=== PATIENT | female | born 1945 | race African-American/Black ===

== ENCOUNTER → 2016-07-06 | Outpatient (CLI) | payer MEDICARE ==
--- NOTE | 2016-07-10 10:57 | MM ---
Reason for exam: screening (asymptomatic). Last mammogram was performed 2 years and 1 month ago. History: Patient is postmenopausal. Family history of premenopausal breast cancer in grandmother at age 24. Cyst aspiration of the left breast, 2008. Took hormonal contraceptives for 14 years beginning at age 22. Took estrogen for 14 years beginning at age 37. Physical Findings: A clinical breast exam by your physician is recommended on an annual basis and results should be correlated with mammographic findings. MG 3D Screening Mammo W/Cad Bilateral CC and MLO view(s) were taken. Prior study comparison: June 16, 2014, bilateral MG screening mammo w CAD. June 15, 2013, bilateral digital screening mammo w/CAD. May 30, 2012, bilateral digital screening mammo w/CAD. The breast tissue is heterogeneously dense. This may lower the sensitivity of mammography. Finding: There is a 9 mm round mass in the lower outer quadrant, posterior position in the left breast. Asymmetric breast tissue in the right breast, stable. New finding since June 16, 2014, June 15, 2013, and May 30, 2012. ASSESSMENT: Incomplete: need additional imaging evaluation, BI-RAD 0 RECOMMENDATION: Ultrasound of the left breast. [facility] will attempt to contact patient to return for ultrasound.
== END ==
LOC: RADMAMWWP 07-05 09:39
PROVIDERS: ATTEND Internal Medicine
DX: Z12.31 Encounter for screening mammogram for malignant neoplasm of breast (principal)
CPT/HCPCS: 77063; G0202

== ENCOUNTER → 2016-07-12 | Outpatient (CLI) | payer MEDICARE ==
--- NOTE | 2016-07-13 09:15 | USB ---
Reason for exam: additional evaluation requested from abnormal screening. History: Patient is postmenopausal. Family history of premenopausal breast cancer in grandmother at age 24. Cyst aspiration of the left breast, 2008. Took hormonal contraceptives for 14 years beginning at age 22. Took estrogen for 14 years beginning at age 37. Physical Findings: Nurse did not find any significant physical abnormalities on exam. US Breast Workup Limited LT Left breast ultrasound demonstrates a 0.8 x 0.7 x 0.5cm oval, cystic lesion at 4 o'clock, this probably corresponds to the mammographic abnormality and a 0.4 x 0.4 x 0.3cm oval, cystic lesion at 6 o'clock. These results were verbally communicated with the patient and result sheet given to the patient on 07/12/16. ASSESSMENT: Probably benign, BI-RAD 3 RECOMMENDATION: Follow-up diagnostic mammogram of the left breast in 6 months. ISHMAEL
== END | disposition home or self-care (01) ==
LOC: RADUSWWP 14:19
PROVIDERS: ATTEND Internal Medicine
DX: R92.8 Other abnormal and inconclusive findings on diagnostic imaging of breast (principal)

== ENCOUNTER → 2017-12-20 | Outpatient (CLI) | payer MEDICARE ==
--- NOTE | 2017-12-23 08:41 | MM ---
Reason for exam: additional evaluation requested from prior study. Last mammogram was performed 1 year and 5 months ago. History: Patient is postmenopausal. Family history of premenopausal breast cancer in grandmother at age 24. Cyst aspiration of the left breast, 2008. Took hormonal contraceptives for 14 years beginning at age 22. Took estrogen for 14 years beginning at age 37. Physical Findings: Nurse Summary: 1.5cm nodule in the left breast at 12 o'clock and 6 o'clock (nurse mj). MG 3D Diag Mammo W/Cad JUDAH Bilateral CC and MLO view(s) were taken. CC with magnification, ML with magnification, and ML view(s) were taken of the right breast. Prior study comparison: July 06, 2016, bilateral MG 3d screening mammo w/cad. June 16, 2014, bilateral MG screening mammo w CAD. The breast tissue is heterogeneously dense. This may lower the sensitivity of mammography. Finding #1: There is a 1.3 cm mass in the outer quadrant, central position of the left breast. Finding #2: There are indeterminate calcifications in the upper outer quadrant of the right breast. These results were verbally communicated with the patient and result sheet given to the patient on 12/20/17. ASSESSMENT: Suspicious, BI-RAD 4 RECOMMENDATION: Stereotactic core biopsy of both breasts. Called with mammographic findings and has scheduled an appointment for the patient for 12/24/17 at 1:[address] Gurrola. PRELIMINARY REPORT CALLED AND FAXED TO DR. GURROLA ON 12/23/17.
--- NOTE | 2017-12-23 08:48 | USB ---
Reason for exam: additional evaluation requested from prior study. History: Patient is postmenopausal. Family history of premenopausal breast cancer in grandmother at age 24. Cyst aspiration of the left breast, 2008. Took hormonal contraceptives for 14 years beginning at age 22. Took estrogen for 14 years beginning at age 37. US Breast LT Left complete breast ultrasound includes all four quadrants, the retroareolar region and axilla. Finding demonstrates a 0.3 x 0.2 x 0.2cm oval, cystic lesion at 1 o'clock, a 0.5 x 0.5 x 0.3cm oval, mixed lesion at 2 o'clock, a 0.4 x 0.5 x 0.3cm oval, cystic lesion at 4 o'clock, a 0.5 x 0.5 x 0.4cm oval, cystic lesion at 6 o'clock and a 1.8 x 2.0 x 0.5cm node at the axilla. These results were verbally communicated with the patient and result sheet given to the patient on 12/20/17. ASSESSMENT: Suspicious, BI-RAD 4 RECOMMENDATION: Surgical consultation of both breasts. Called with mammographic findings and has scheduled an appointment for the patient for 12/24/17 at 1:[address] Gurrola. PRELIMINARY REPORT CALLED AND FAXED TO DR. GURROLA ON 12/23/17.
== END | disposition home or self-care (01) ==
LOC: RADMAMWWP 13:35
PROVIDERS: ATTEND Family Medicine
DX: N63.20 Unspecified lump in the left breast, unspecified quadrant (principal); N60.09 Solitary cyst of unspecified breast
CPT/HCPCS: 77066; 76641; G0279; 77062

== ENCOUNTER → 2018-01-24 | Outpatient (CLI) | payer MEDICARE ==
[2018-01-24 11:44] VITALS: BP 151/79; PULSE 87; RESP 20; TEMP 98; BMI 37.7
--- NOTE | 2018-01-24 12:19 | P.GSHP ---
History of Present Illness H&P Date: 01/24/18 Chief Complaint: Impression abnormal mammogram The patient is a 72 year old female presenting with a abnormal mammogram. The mammogram reveals a 1.3 cm mass in the upper outer quadrants/ central position of the left breast. Additionally there were indeterminate calcifications in the upper outer quadrant of the right breast. The patient was noted by the nurse to have a 1.5 cm nodule in the left breast at 12:00 and at 6:00. The patient herself states that she has noticed some nodularity in her left breast and under her left arm for approximately 6 months. The patient also had an ultrasound performed which revealed cystic changes in the left breast, as well as a 1.8 centimeter node in the axilla on the left. The patient has no history of any trauma or infection in her breast. Family History: no cancer Hormonal History: menarche: 12 : 2, children 1, breast fed: no, child born at age:24 menopause: partial hysterectomy at 37, 1 ovary and uterus removed fibroid tumors BCP: 10 years Hormones: none Past surgical history: 1. Partial hysterectomy and 1 ovary removed 2.tonsil 3. Left ankle 4. Right knee Past Medical History: none Social History: smoke: 1/2/PPD since alcohol: none drugs: none - Constitutional Constitutional: Denies chills, Denies fever - EENT Comment: cataracts Eyes: denies blurred vision (double vision at night) Ears: deny: decreased hearing, tinnitus Ears, nose, mouth and throat: Denies headache, Denies sore throat - Breasts Breasts: bilateral: as per HPI - Cardiovascular Cardiovascular: Denies chest pain, Denies shortness of breath - Respiratory Respiratory: Denies cough, Denies 7 - Gastrointestinal Gastrointestinal: Denies abdominal pain, Denies diarrhea, Denies nausea, Denies vomiting - Genitourinary (Female) Genitourinary: Denies dysuria, Denies hematuria - Menstruation Menstruation: Reports post hysterectomy - Musculoskeletal Musculoskeletal: Reports muscle cramps - Integumentary Integumentary: Denies pruritus, Denies rash - Neurological Neurological: Denies numbness, Denies weakness - Psychiatric Psychiatric: Denies anxiety, Denies depression - Endocrine Endocrine: Reports weight change, Denies fatigue - Hematologic/Lymphatic Comment: none - Allergic/Immunologic Allergic/Immunologic: Reports seasonal allergies Past Medical History Past Medical History: GERD/Reflux Additional Past Medical History / Comment(s): Hx anemia History of Any Multi-Drug Resistant Organisms: None Reported Past Surgical History: Hysterectomy, Orthopedic Surgery, Tubal Ligation Additional Past Surgical History / Comment(s): Rt knee arthroscopy, Rt pinky surgery, Rt ankle cyst removed Past Anesthesia/Blood Transfusion Reactions: No Reported Reaction Past Psychological History: No Psychological Hx Reported Smoking Status: Light tobacco smoker Past Alcohol Use History: Occasional Past Drug Use History: None Reported - Past Family History Father Family Medical History: Congestive Heart Failure (CHF) Mother Family Medical History: Dementia Medications and Allergies Home Medications Medication Instructions Recorded Confirmed Type Ranitidine HCl [Zantac] 150 mg PO BID PRN 06/02/14 01/24/18 History Omeprazole [PriLOSEC] 20 mg PO AC-BID 5 Days cap 06/12/14 01/24/18 Rx Allergies Allergy/AdvReac Type Severity Reaction Status Date / Time Sulfa (Sulfonamide Allergy Rash/Hives Verified 06/12/14 18:22 Antibiotics) Surgical - Exam Vital Signs Temp Pulse Resp BP Pulse Ox 98.0 F 87 20 151/79 99 01/24/18 11:36 01/24/18 11:36 01/24/18 11:36 01/24/18 11:36 01/24/18 11:36 BMI 37.7 - General obese - Eyes normal ocular movement - ENT no hearing loss, no congestion - Neck no masses, trachea midline - Respiratory normal expansion - Cardiovascular Rhythm: regular Heart Sounds: normal: S1, S2 - Abdomen Abdomen: soft - Neurologic no disoriented, no combative - Musculoskeletal normal gait, normal posture - Psychiatric oriented to time, oriented to person, oriented to place, speech is normal, memory intact Breast examination: Right breast: Multiple positional exam fibrocystic changes no discrete dominant mass or nodule of concern Right axilla: No adenopathy of concern Left breast: Multi-positional exam fibrocystic changes, increased fullness in the mid breast which appears to be similar to that on the right side, no other dominant masses or nodules of concern Left axilla: No adenopathy of concern Results Mammogram and ultrasound reports reviewed Assessment and Plan Assessment: Impression: 1. Bilateral mammographic abnormalities 2. Left breast cyst with an axillary lesion noted in the left breast 1.8 cm Plan: 1. Bilateral stereotactic core biopsies 2. Will review radiographs with radiology possible core biopsy of axillary lesion on the left Risks and benefits of stereotactic core biopsy discussed with the patient. She wishes to proceed. This is scheduled for the near future. Cc: Dr. Sonja Gurrola
== END | disposition home or self-care (01) ==
LOC: WWCWWP 11:25
PROVIDERS: ATTEND Surgery
DX: Z53.9 Procedure and treatment not carried out, unspecified reason (principal)

== ENCOUNTER → 2018-01-31 | Day surgery (SDC) | payer MEDICARE ==
[2018-01-31 07:34] VITALS: RESP 16; TEMP 98; BMI 36.4
--- NOTE | 2018-01-31 09:39 | P.OP ---
Date of Procedure: 01/31/18 Preoperative Diagnosis: Mammographic abnormality right breast, in determining calcifications in the upper outer quadrant of the right breast Postoperative Diagnosis: Same Anesthesia: local Surgeon: Sydnie Mcgowan Estimated Blood Loss (ml): 0 Pathology: other (breast tissue with microcalcifications) Condition: stable Disposition: same day Indications for Procedure: 72-year-old black female with mammographic abnormality showing indeterminate calcifications in the upper quadrant of the right breast Operative Findings: Microcalcifications of the breast Description of Procedure: The patient was taken to the stereotactic core biopsy room and positioned on the low red table. The area of concern in the right breast was identified using a CC from above review on marketing campaign analyst films. Stereotactic pair radiographs were obtained. The skin was prepped using Betadine. 1% lidocaine 10 mL was used to anesthetize the area of the biopsy. The needle was driven to the correct cord and its and pre-and post-fire films were obtained. It appeared that the area of concern was not in the correct target location and therefore adjustments were made. Repeat radiographs did not remedy the situation and thus the area was retargeted. The needle was a 9-gauge petite vacuum-assisted rotating cutting needle. The area was retargeted. The area again had been prepped with Betadine, and anesthetized using 1% lidocaine. It was in the same vicinity as the original lidocaine injection in no more lidocaine was necessary. The 9-gauge petite vacuum-assisted rotating cutting needle was driven to the correct target. Pre-and post-fire films were obtained which revealed that the needle was in the correct location. The approach was CC from above. 12 core biopsies were obtained and radiographs the specimen did not reveal the microcalcifications. Additional specimens were taken from 12:00 3: 00 and 6:00 2 from each area. Additional radiographs revealed that the microcalcifications of concern had been sampled. Approximately 18 core biopsies were obtained. Following this a Tri-González marker was placed. The patient tolerated the procedure in stable condition. The specimen was sent for pathology. The left breast is approached for a nodular area noted in the left breast.
[2018-01-31 10:07] VITALS: BP 155/83; PULSE 73
--- NOTE | 2018-01-31 10:35 | MM ---
EXAMINATION TYPE: MG stereo VAD BX RT, MG discontinued stereo core LT DATE OF EXAM: 01/31/2018 COMPARISON: Prior mammogram December 20, 2017 and older studies. CLINICAL HISTORY: Abnormal mammogram TECHNIQUE: Stereotactic guided core biopsy of right breast with clip placement and follow-up two-view mammogram. Attempted stereotactic guided core biopsy of left breast. FINDINGS: The procedure of stereotactic guided core biopsy was explained to the patient. Benefits, alternatives, and risks were discussed. An informed consent was then obtained. The shortness pathway for biopsy was chosen. Shortness pathway was cranial approach in the right breast. I performed the localization, then surgeon, Dr. Mcgowan performed the remainder of the procedure. A vacuum assisted biopsy gun was used to obtain multiple core samples. The patient tolerated the procedure well without any immediate complication. Targeted calcifications are identified in specimen mammogram. Post biopsy mammogram shows the clip to appear roughly 2 to 3 cm superior in location or retracted relative to the targeted area of concern on the preprocedure images. Few residual calcifications are felt evident. Left breast middle depth outer lobulated 1.3 cm nodule could not be localized despite several attempts using CC and lateral compression. This procedure had to be canceled. The patient was kept in the radiology department for short stay after the procedure and then discharged home in stable condition. IMPRESSION: SUCCESSFUL, UNCOMPLICATED STEREOTACTIC GUIDED CORE BIOPSY OF AREA OF CONCERN IN THE RIGHT BREAST, FULL PATHOLOGY RESULTS TO FOLLOW. Low index of suspicion noted at time of procedure. IT WAS RECOMMENDED TO PATIENT TO HAVE 3-D STEREOTACTIC GUIDED OF SUSPICIOUS NEW LEFT BREAST LESION WHICH IS NOT OFFERED AT THIS INSTITUTION. Pathology Results: Benign RIGHT BREAST LESION, NEEDLE CORE BIOPSY: Benign breast parenchyma with fibrocystic spectrum lesions showing focally coarse intraductal mineralizations , fibroadenomatoid change and diffuse stromal sclerosis. Recommendation 3d stereo biopsy at outside institution for second area of concern in left breast. MTDD
== END | disposition home or self-care (01) ==
LOC: RADMAMWWP 07:06
PROVIDERS: ATTEND Surgery
DX: N60.31 Fibrosclerosis of right breast (principal); Z53.8 Procedure and treatment not carried out for other reasons; N63.0 Unspecified lump in unspecified breast
CPT/HCPCS: 88305; 19081 ×2; A4648; J2001

== ENCOUNTER → 2018-02-20 | Outpatient (CLI) | payer MEDICARE ==
[2018-02-20 15:04] VITALS: BP 131/61; PULSE 89; RESP 18; TEMP 96.1; BMI 36.6
--- NOTE | 2018-02-20 15:14 | P.PN ---
Subjective Progress Note Date: 02/20/18 Principal diagnosis: Stereotactic core biopsy of 2 areas one in the right breast done at [facility] and one in the left breast on done on [id number] at [facility], and one done on [id number] at [facility] the pathology for [facility] was benign fibrocystic disease, and that from [facility] revealed hyalinized fibroadenoma. The patient has no complaints related to the procedure. Karen is a 72-year-old female who underwent a right breast stereotactic core biopsy at [facility] on [id number]. Pathology was benign. She then underwent a left breast stereotactic core biopsy [facility] on . This revealed a fibroadenoma. The patient has no complaints related to the procedure. Objective - Vital Signs Vital signs: Vital Signs Temp 96.1 F L 02/20/18 14:51 Pulse 89 02/20/18 14:51 Resp 18 02/20/18 14:51 BP 131/61 02/20/18 14:51 Pulse Ox 99 02/20/18 14:51 Intake & Output 02/19/18 02/20/18 02/20/18 18:59 06:59 18:59 Weight 87.767 kg - Exam BMI 36.6 - Constitutional General appearance: Present: obese - EENT Eyes: Present: EOMI ENT: Present: hearing grossly normal - Neck Neck: Present: normal ROM - Respiratory Respiratory: bilateral: CTA - Cardiovascular Rhythm: regular Heart sounds: normal: S1, S2 - Gastrointestinal General gastrointestinal: Present: soft - Integumentary Integumentary Comment(s): Puncture sites from both core biopsies are clean and dry with no evidence of hematoma or ecchymosis no evidence of infection - Psychiatric Psychiatric: Present: A&O x's 3, appropriate affect, intact judgment & insight Assessment and Plan Assessment: Impression: 1. Bilateral benign core biopsies of the breast 2. Fibrocystic changes of the breast and fiber adenoma the left breast Plan: 1. Bilateral mammogram in 6 months with physician exam at that time CC:Dr. Gurrola
== END ==
LOC: WWCWWP 14:45
PROVIDERS: ATTEND Surgery
DX: Z53.9 Procedure and treatment not carried out, unspecified reason (principal)

== ENCOUNTER → 2018-08-14 | Outpatient (CLI) | payer MEDICARE ==
--- NOTE | 2018-08-14 11:35 | MM ---
Reason for exam: follow-up at short interval from prior study. Last mammogram was performed 8 months ago. History: Patient is postmenopausal. Benign stereotactic core biopsy of the left breast, February 13, 2018. Benign MG stereo VAD BX RT of the right breast, January 31, 2018. MG discontinued stereo core LT of the left breast, January 31, 2018. Cyst aspiration of the left breast, 2008. Took hormonal contraceptives beginning at age 24. Physical Findings: Nurse Summary: 1cm nodule in the left breast at 12 o'clock, stable (nurse mj). MG 3D Diag Mammo W/Cad JUDAH Bilateral CC and MLO view(s) were taken. Prior study comparison: December 20, 2017, bilateral MG 3d diag mammo w/cad JUDAH. July 06, 2016, bilateral MG 3d screening mammo w/cad. The breast tissue is heterogeneously dense. This may lower the sensitivity of mammography. Previous mammotome biopsy in the right and left breast. No significant new findings when compared with previous films. These results were verbally communicated with the patient and result sheet given to the patient on 08/14/18. ASSESSMENT: Benign, BI-RAD 2 RECOMMENDATION: Routine screening mammogram of both breasts in 1 year.
== END | disposition home or self-care (01) ==
LOC: RADMAMWWP 10:26
PROVIDERS: ATTEND Surgery
DX: R92.8 Other abnormal and inconclusive findings on diagnostic imaging of breast (principal)
CPT/HCPCS: 77066; G0279; 77062

== ENCOUNTER → 2018-09-25 | Outpatient (CLI) | payer MEDICARE ==
[2018-09-25 13:58] VITALS: BP 130/69; PULSE 78; RESP 20; TEMP 98.3; BMI 39.0
--- NOTE | 2018-09-25 14:15 | P.PN ---
Subjective Progress Note Date: 09/25/18 Karen is a 73 year old black female who underwent bilateral bresat core biopisies in January of 2018. The left breast biopsy was a a hyalinized fibroadenoma, and the right breast biopsy done at [facility] was fibrocystic disease. She had a bilateral mammogram done on 08-14-18 which was BIRADS 2 and benign screening in one year recommended. She does not feel anyting of concern in her breast. She does states about 2 weeks ago she hit her left breast wit a door and it was sore, but this has improved. She did not turn black and blue. She did had a nodule at that site for a short time which is no longer there. Objective - Vital Signs Vital signs: Vital Signs Temp 98.3 F 09/25/18 13:52 Pulse 78 09/25/18 13:52 Resp 20 09/25/18 13:52 BP 130/69 09/25/18 13:52 Pulse Ox 100 09/25/18 13:52 Intake & Output 09/24/18 09/25/18 09/25/18 18:59 06:59 18:59 Weight 90.718 kg - Exam BMI 39.1 - Constitutional General appearance: Present: obese - EENT Eyes: Present: EOMI ENT: Present: hearing grossly normal - Neck Neck: Present: normal ROM - Respiratory Respiratory: bilateral: CTA - Cardiovascular Rhythm: regular Heart sounds: normal: S1, S2 - Gastrointestinal General gastrointestinal: Present: soft - Integumentary Integumentary: Present: normal turgor - Musculoskeletal Musculoskeletal: Present: gait normal - Psychiatric Psychiatric: Present: A&O x's 3, appropriate affect, intact judgment & insight - Additional findings Additional findings: breast exam: right bresat: multipositional exam no masses, fibrocystic changes right axilla: no adenopathy of concern left breast: no masses of concern left axilla: no adenopathy of concern Assessment and Plan Assessment: Impression: 1. fibrocystic breast changes 2. history of a fibroadenoma 3. no lesions of concern in the breast on exam at this time Plan: 1. bilateral mammogram in one year with exam at that time CC: Dr. Gurrola
== END ==
LOC: WWCWWP 13:36
PROVIDERS: ATTEND Surgery
DX: Z53.9 Procedure and treatment not carried out, unspecified reason (principal)

== ENCOUNTER 2019-04-01 07:38 | Day surgery (SDC) | payer MEDICARE ==
[2019-03-30 15:13] VITALS: BMI 37.5
[~2019-04-01 07:38] MED LIST: LACTATED RINGERS 1,000 ML IV SCH; LIDOCAINE 1% 20 ML VIAL (10MG/ML) FOR IV START INTRADERMA PRN
[2019-04-01 07:58] VITALS: TEMP 97.6
[2019-04-01 07:58] LABS: Glucose,Whole Blood 97 mg/dL (75-99)
[2019-04-01] MEDS ORDERED: PROPOFOL 10 MG/ML 20 ML VIAL IV ONE (08:11)
--- NOTE | 2019-04-01 08:28 | P.PCN ---
Date of Procedure: 04/01/19 Procedure(s) Performed: BRIEF HISTORY: Patient is a 73-year-old pleasant female scheduled for an elective colonoscopy as a part of evaluation of prior history of colon polyps. Her last coloscopy was 5 years ago. PROCEDURE PERFORMED: Colonoscopy. PREOPERATIVE DIAGNOSIS: History of colon polyps. IV sedation per Anesthesia. PROCEDURE: After informed consent was obtained, the patient, was brought into the endoscopy unit. IV sedation was administered by Anesthesia under continuous monitoring. Digital rectal examination was normal. Initially the Olympus CF-160 flexible video colonoscope was then inserted in the rectum, gradually advanced into the cecum without any difficulty. Careful examination was performed as the scope was gradually being withdrawn. Ileocecal valve and the appendiceal orifice were visualized and appeared normal. Prep was excellent. Mucosa of the cecum, ascending colon, transverse colon, descending colon, sigmoid colon, and rectum appeared normal. Moderate sigmoid diverticulosis. Retroflexion was performed in the rectum and no lesions were seen. The patient tolerated the procedure well. IMPRESSION: Normal-appearing colon from rectum to cecum with no evidence of colorectal neoplasia. Moderate sigmoid diverticulosis. RECOMMENDATIONS: Findings of this examination were discussed with the patient as well as her family. She was advised to have a repeat surveillance colonoscopy in 5 years from now because of the prior history of colon polyps .
[2019-04-01 08:34] VITALS: RESP 16
[2019-04-01 08:46] VITALS: BP 126/86; PULSE 74
== END 2019-04-01 09:00 | disposition home or self-care (01) ==
LOC: ORWHC2ENDO 07:38
PROVIDERS: ATTEND Internal Medicine Gastroenterology
DX: Z12.11 Encounter for screening for malignant neoplasm of colon (principal); K57.30 Diverticulosis of large intestine without perforation or abscess without bleeding; Z86.010 Personal history of colon polyps; E11.9 Type 2 diabetes mellitus without complications; K21.9 Gastro-esophageal reflux disease without esophagitis; Z72.0 Tobacco use; Z79.899 Other long term (current) drug therapy; Z88.0 Allergy status to penicillin; Z88.2 Allergy status to sulfonamides
CPT/HCPCS: G0121; J2704; 45378

== ENCOUNTER → 2019-09-29 | Outpatient (CLI) | payer MEDICARE ==
--- NOTE | 2019-09-30 14:57 | MM ---
Reason for exam: screening (asymptomatic). Last mammogram was performed 1 year and 1 month ago. History: Patient is postmenopausal. Benign stereotactic core biopsy of the left breast, February 13, 2018. Benign MG stereo VAD BX RT of the right breast, January 31, 2018. MG discontinued stereo core LT of the left breast, January 31, 2018. Cyst aspiration of the left breast, 2008. Took hormonal contraceptives beginning at age 24. Physical Findings: A clinical breast exam by your physician is recommended on an annual basis and results should be correlated with mammographic findings. MG 3D Screening Mammo W/Cad Bilateral CC and MLO view(s) were taken. Prior study comparison: August 14, 2018, bilateral MG 3d diag mammo w/cad JUDAH. December 20, 2017, bilateral MG 3d diag mammo w/cad JUDAH. The breast tissue is heterogeneously dense. This may lower the sensitivity of mammography. No significant changes when compared with prior studies. ASSESSMENT: Benign, BI-RAD 2 RECOMMENDATION: Routine screening mammogram of both breasts in 1 year.
== END | disposition home or self-care (01) ==
LOC: RADMAMWWP 13:29
PROVIDERS: ATTEND Family Medicine
DX: Z12.31 Encounter for screening mammogram for malignant neoplasm of breast (principal)
CPT/HCPCS: 77063; 77067

== ENCOUNTER → 2020-10-27 | Outpatient (CLI) | payer MEDICARE ==
--- NOTE | 2020-10-31 09:52 | MM ---
Reason for exam: screening (asymptomatic). Last mammogram was performed 1 year and 1 month ago. History: Patient is postmenopausal. Benign stereotactic core biopsy of the left breast, February 13, 2018. Benign MG stereo VAD BX RT of the right breast, January 31, 2018. MG discontinued stereo core LT of the left breast, January 31, 2018. Cyst aspiration of the left breast, 2008. Took hormonal contraceptives beginning at age 24. Physical Findings: A clinical breast exam by your physician is recommended on an annual basis and results should be correlated with mammographic findings. MG 3D Screening Mammo W/Cad Bilateral CC and MLO view(s) were taken. Prior study comparison: September 29, 2019, bilateral MG 3d screening mammo w/cad. August 14, 2018, bilateral MG 3d diag mammo w/cad JUDAH. Finding: There is a typically benign 8 mm equal density (isodense), round mass located 12 cm from the nipple in the 5-6 o'clock posterior position, increased from 6mm. No significant changes in finding since September 29, 2019 and August 14, 2018. ASSESSMENT: Benign, BI-RAD 2 RECOMMENDATION: Routine screening mammogram of both breasts in 1 year.
== END | disposition home or self-care (01) ==
LOC: RADMAMWWP 15:40
PROVIDERS: ATTEND Family Medicine
DX: Z12.31 Encounter for screening mammogram for malignant neoplasm of breast (principal); Z78.0 Asymptomatic menopausal state
CPT/HCPCS: 77063; 77067

== ENCOUNTER → 2021-10-30 | Outpatient (CLI) | payer MEDICARE ==
--- NOTE | 2021-10-31 10:47 | MM ---
Reason for Exam: Screening (asymptomatic). Last screening mammogram was performed 12 month(s) ago. Patient History: Menarche at age 12. First Full-Term at age 24. Left ovary removed at age 37. Hysterectomy at age 37. Postmenopausal. Hormonal Contraceptives, from age 24 until age 36. 2008, Cyst Aspiration on the Left side. 02/13/2018, Benign Stereotactic Core Biopsy on the left side. 01/31/2018, Benign Core Biopsy on the right side. 01/31/2018, MG discontinued stereo core LT on the left side. Risk Values: Serenity 5 year model risk: 2.6%. NCI Lifetime model risk: 5.6%. Prior Study Comparison: 08/14/2018 Bilateral Diagnostic Mammogram, [facility]. 09/29/2019 Bilateral Screening Mammogram, [facility]. 10/27/2020 Bilateral Screening Mammogram, [facility]. Tissue Density: The breast tissue is heterogeneously dense. This may lower the sensitivity of mammography. Findings: Analyzed By CAD. There is no suspicious group of microcalcifications or new suspicious mass in either breast. Stable benign-appearing calcification in bilateral breasts. There is a biopsy clip in the bilateral breast. Overall Assessment: Benign, BI-RAD 2 Management: Screening Mammogram of both breasts in 1 year. A clinical breast exam by your physician is recommended on an annual basis and results should be correlated with mammographic findings. Electronically signed and approved by: Pb Cummings DO
== END | disposition home or self-care (01) ==
LOC: RADMAMWWP 13:18
PROVIDERS: ATTEND Family Medicine
DX: Z12.31 Encounter for screening mammogram for malignant neoplasm of breast (principal); Z78.0 Asymptomatic menopausal state
CPT/HCPCS: 77063; 77067

== ENCOUNTER → 2023-03-26 | Outpatient (CLI) | payer MEDICARE ==
--- NOTE | 2023-03-27 15:55 | MM ---
Reason for Exam: Screening (asymptomatic). Last mammogram was performed 1 year(s) and 5 month(s) ago. Patient History: Menarche at age 12. First Full-Term at age 24. Left ovary removed at age 37. Hysterectomy at age 37. Postmenopausal. Hormonal Contraceptives, from age 24 until age 36. 2008, Cyst Aspiration on the Left side. 02/13/2018, Benign Stereotactic Core Biopsy on the left side. 01/31/2018, Benign Core Biopsy on the right side. 01/31/2018, MG discontinued stereo core LT on the left side. Risk Values: Serenity 5 year model risk: 1.9%. NCI Lifetime model risk: 3.7%. Prior Study Comparison: 09/29/2019 Bilateral Screening Mammogram, [facility]. 10/27/2020 Bilateral Screening Mammogram, [facility]. 10/30/2021 Bilateral MG 3D screening mammo w/cad, [facility]. Tissue Density: The breast tissue is heterogeneously dense. This may lower the sensitivity of mammography. Findings: Analyzed By CAD. Pattern appears symmetrical and stable. There is a chronic 1.3 cm nodule within the posterior 6:00 position right breast 12 cm from the nipple. Core markers are within the bilateral breasts. Scattered benign calcification is present. No suspicious groups of microcalcifications, spiculated or lobular masses, architectural distortion or other secondary signs of malignancy are mammographically apparent. Overall Assessment: Benign, BI-RAD 2 Management: Screening Mammogram of both breasts in 1 year. A negative mammogram report should not preclude additional follow up of suspicious palpable abnormalities. Patient should continue monthly self breast exam. A clinical breast exam by your physician is recommended on an annual basis and results should be correlated with mammographic findings. Electronically signed and approved by: Munir Hughes D.O. Radiologis
--- NOTE | 2023-03-27 20:22 | BD ---
EXAMINATION TYPE: Axial Bone Density DATE OF EXAM: 03/26/2023 CLINICAL HISTORY: 77 years old Female. ICD-10 CODE: M81.0 OSTEOPOROSIS Height: 59 Weight: 184 FRAX RISK QUESTIONS: Secondary Osteoporosis: yes 3. Menopause before 45: yes Current Tobacco Use: yes, quit few mos ago RISK FACTORS HISTORY OF: Postmenopausal woman: yes at 37 hyst Take estrogen and/or progesterone medications: yes for a year Lost more than 2 inches in height since high school: yes Hyperparathyroidism: no Adrenal Insufficiency: no MEDICATIONS: Thyroid Medications: yes, for one year Additional Medications: bp meds, vit d, reflux meds Additional History: hypertension, reflux, thyroid, EXAM MEASUREMENTS: Bone mineral densitometry was performed using the Revetto System. Bone mineral density as measured about the Lumbar spine is: ----- L1-L4(G/cm2): 1.160 T Score Values are as follows: ----- L1: 0.1 ----- L2: -0.8 ----- L3: -0.2 ----- L4: 0.0 ----- L1-L4: -0.2 Z Score Values are as follows: ----- L1: 0.6 ----- L2: -0.4 ----- L3: 0.3 ----- L4: 0.4 ----- L1-L4: 0.3 Bone mineral density has: Increased 3.9% since study of: 03.14.2009 Bone mineral density about the R hip (g/cm2): 0.978 Bone mineral density about the L hip (g/cm2): 0.971 T Score values are as follows: -----R Neck: -0.6 -----L Neck: -1.4 -----R Total: -0.2 -----L Total: -0.3 Z Score values are as follows: -----R Neck: 0.0 -----L Neck: -0.8 -----R Total: 0.2 -----L Total: 0.1 Bone mineral density has: Increased 0.1% since study of: 03.14.2009 FRAX%s: The graph provided illustrates a 4.9% chance for a major osteoporotic fx and a 1.5% chance fo r the hips probability for fx in 10 years time. IMPRESSION: Osteopenia (T Score between -2.5 and -1). There is slightly increased risk of fracture and the patient may be considered for treatment. Re-Screen 2-5 years. NOTE: T-SCORE=SD OF THE YOUNG ADULT MEAN.
== END | disposition home or self-care (01) ==
LOC: RADBDWWP 10:00
PROVIDERS: ATTEND Family Medicine
DX: Z12.31 Encounter for screening mammogram for malignant neoplasm of breast (principal); M81.0 Age-related osteoporosis without current pathological fracture; M85.852 Other specified disorders of bone density and structure, left thigh; Z78.0 Asymptomatic menopausal state
CPT/HCPCS: 77063; 77067; 77080

== ENCOUNTER → 2023-04-10 | Outpatient (CLI) | payer MEDICARE ==
[2023-04-10 13:31] LABS: African American GFR (CKD) >90 (>60 ml/min/1.73 sqM); Blood Urea Nitrogen 13 mg/dL (7-17); Non-African American GFR(CKD) >90 (>60 ml/min/1.73 sqM)
--- NOTE | 2023-04-12 08:44 | CT ---
EXAMINATION TYPE: CT abdomen pelvis w con DATE OF EXAM: 04/10/2023 COMPARISON: None INDICATION: pelvic swelling DLP: 1498.60 mGycm, Automated exposure control for dose reduction was used. CONTRAST: 100ml mL of Isovue 300. Study performed with Oral Contrast TECHNIQUE: Axial images were obtained from above the diaphragm to the pubic rami in the axial plane a t 5 mm thick sections. Reconstructed images are reviewed on the computer in the coronal plane. FINDINGS: Limited CT sections are obtained the lung bases. There is a 0.5 cm nodule within the lingular base. Follow-up CT chest is recommended. CT ABDOMEN: Liver: Normal Spleen: There is a 1.7 cm hypodensity within the medial spleen. Correlation with ultrasound to evalua te for cyst. Pancreas: Normal Adrenal glands: The adrenal glands are normal. Gallbladder: Normal Kidneys: No masses are evident. No hydronephrosis is present. Small cortical renal cysts are presen t. Delayed images were obtained through the kidneys. Aorta: Normal. Inferior vena cava: Normal. CT PELVIS: Loops of bowel within the abdomen and pelvis are normal. There are loops of bowel which are incom pletely distended or lack oral contrast limiting their evaluation. Appendix: Normal as visualized. Urinary bladder: Normal. Genitourinary structures: Uterus and ovaries are not identified. Osseous structures: No suspicious lytic or sclerotic lesions. There may be spondylolysis at L5. Minim al spondylolisthesis of L4 internal 5 and L5 anterior on S1 is present. IMPRESSION: 1. Probable cyst within the spleen. Confirmation with ultrasound is recommended. 2. 0.[address] chest can further evaluate this finding. 3. No suspicious abnormalities account for pelvic swelling.
== END | disposition home or self-care (01) ==
LOC: RADCTMAIN 11:50
PROVIDERS: ATTEND Family Medicine
DX: R19.00 Intra-abdominal and pelvic swelling, mass and lump, unspecified site (principal); R91.1 Solitary pulmonary nodule
CPT/HCPCS: 82565; 84520; 74177; 36415; Q9967

== ENCOUNTER → 2023-07-23 | Outpatient (CLI) | payer MEDICARE ==
[2023-07-23 12:46] LABS: African American GFR (CKD) >90 (>60 ml/min/1.73 sqM); Blood Urea Nitrogen 13 mg/dL (7-17); Non-African American GFR(CKD) >90 (>60 ml/min/1.73 sqM)
--- NOTE | 2023-07-29 09:57 | CT ---
EXAMINATION TYPE: CT chest w con CT DLP: 419.8 mGycm, Automated exposure control for dose reduction was used. DATE OF EXAM: 07/23/2023 1:52 PM COMPARISON: CT abdomen pelvis April 10, 2023. CLINICAL INDICATION:Female, 77 years old with history of R91.8 nonspecific FINDING LUNG FIELD; PHH, l gris nodule follow-up. TECHNIQUE: Multiple axial images were obtained through the chest. Sagittal and coronal reformats were created for review. Contrast used:100 mL of Isovue 300 with IV Contrast (None if empty) Oral contrast used: (None if empty) FINDINGS: LUNGS/ PLEURA: A 5 mm nodule is identified. Lingula atelectasis 165 and 160. Three 3 mm calcified nodules are seen in the right middle lobe lateral segment on series 3, image 24. Lungs are otherwise clear. AIRWAY: Patent and unremarkable. HEART: Size within normal limits. MEDIASTINUM: No gross evidence of adenopathy. VASCULATURE: No aortic aneurysm. MUSCULOSKELETAL: No acute osseous abnormalities. Degenerative disc disease and endplate spondylosis i n the thoracic spine. SOFT TISSUES/LYMPH NODES: Unremarkable. LOWER NECK: No significant findings. UPPER ABDOMEN: No significant findings. A small cyst in the spleen is again identified. IMPRESSION: Stable 5 mm nodule in the lingula. Three additional 3 mm calcified nodules in the right lung appear benign. Follow up recommendations for incidental pulmonary nodules, if there are any, are per Fleischner[employer]s [employer] [employer] or [employer]. https://radiopaedia.org/articles/rlovepdaau-tuhidzx-ovsprmedw-aqysqc-lckntdhyflzgckj-0?lang=us Fleischner Society guidelines Multiple solid nodules <6 mm (<100 mm3) low-risk patients: no routine follow-up required. high-risk patients: optional CT at 12 months (high-risk equals smoking or cancer history)
== END | disposition home or self-care (01) ==
LOC: RADCTMAIN 12:11
PROVIDERS: ATTEND Family Medicine
DX: R91.8 Other nonspecific abnormal finding of lung field (principal)
CPT/HCPCS: 82565; 84520; 71260; 36415; Q9967

== ENCOUNTER → 2023-09-06 | Outpatient (CLI) | payer MEDICARE ==
--- NOTE | 2023-09-06 10:49 | US ---
EXAMINATION TYPE: US abdomen complete DATE OF EXAM: 09/06/2023 COMPARISON: CT 2023 CLINICAL INDICATION: Female, 78 years old with history of R93.5 ABN FIND DX IMAGING; TECHNIQUE: Multiple sonographic images of the abdomen are obtained. FINDINGS: EXAM MEASUREMENTS: Liver Length: 14.5 cm Gallbladder Wall: 0.2 cm CBD: 0.5 cm Spleen: 10.3 cm Right Kidney: 10.0 x 3.3 x 4.7 cm Left Kidney: 10.0 x 4.3 x 4.7 cm Pancreas: visualized portions wnl, limited by overlying midline bowel gas Liver: wnl Gallbladder: wnl Evidence for sonographic Zambrano's sign: no CBD: wnl Spleen: limited by overlying bowel gas, hypodensity seen on recent CT not seen on today's exam Right Kidney: 1.0cm hyperechoic area lateral inferior pole Left Kidney: 1.2cm hyperechoic area lateral superior pole Upper IVC: wnl Abd Aorta: wnl IMPRESSION: 1. Limited pancreas due to bowel gas. 2. No hepatomegaly or focal liver mass. 3. No splenomegaly or focal splenic lesion. 4. Bilateral proximal 1 cm hypoechoic masses in both kidneys as described above. 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 No masses were seen in the kidneys on the CT of the abdomen and pelvis d ated 04/10/2023
== END | disposition home or self-care (01) ==
LOC: RADUSWWP 06:50
PROVIDERS: ATTEND Family Medicine
DX: R93.5 Abnormal findings on diagnostic imaging of other abdominal regions, including retroperitoneum (principal); R14.3 Flatulence
CPT/HCPCS: 76700

== ENCOUNTER → 2023-09-27 | Outpatient (CLI) | payer MEDICARE ==
--- NOTE | 2023-09-27 13:38 | MR ---
EXAMINATION TYPE: MR knee LT wo con DATE OF EXAM: 09/27/2023 COMPARISON: None HISTORY: Left knee pain. TECHNIQUE: Multiplanar, multisequence imaging of the left knee is performed without IV contrast. FINDINGS: There is no bone contusion, fracture or joint effusion. There is moderate thinning of the patellar cartilage with subchondral changes consistent with moderat e osteophytic change. There is mild thinning of the articular cartilages and hypertrophic spurring of the medial and latera l compartments consistent with mild osteoarthritis.. There is a complex tear of the body and anterior horn of the lateral meniscus and there is displaceme nt of the lateral meniscus laterally. There is abnormal signal intensity within the medial meniscus b ut no discrete tear. There is mild displacement of the medial meniscus medially. The cruciate and collateral ligaments are intact. Quadriceps and patellar tendons are intact and the anterior fat pads are normal. IMPRESSION: 1. Tricompartment osteoarthritis as described above, greatest in the patellofemoral compartment. 2. Lateral meniscal tear. 3. No acute trauma or joint effusion. 4. No ligamentous injury.
== END | disposition home or self-care (01) ==
LOC: RADMRIMAIN 11:05
PROVIDERS: ATTEND Orthopaedic Surgery
DX: M17.12 Unilateral primary osteoarthritis, left knee (principal)

== ENCOUNTER 2024-03-30 16:29 | Emergency (ER) | payer MEDICARE, OTHER ==
[2024-03-30 16:54] VITALS: BP 146/81; PULSE 92; RESP 20; TEMP 97.5
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
[2024-03-30] MEDS: KETOROLAC 15 MG/ML 1 ML VIAL IM STA (18:15)
[2024-03-30] MEDS: LIDOCAINE 4% PATCH TOPICAL ONE (18:17)
== END 2024-03-30 18:23 | disposition home or self-care (01) ==
LOC: EC 16:29
DX: M54.2 Cervicalgia (principal); Z87.891 Personal history of nicotine dependence; Z88.0 Allergy status to penicillin; Z88.2 Allergy status to sulfonamides; V89.2XXA Person injured in unspecified motor-vehicle accident, traffic, initial encounter; Y92.410 Unspecified street and highway as the place of occurrence of the external cause
CPT/HCPCS: 99284; 96372; 72050; J1885

== ENCOUNTER → 2024-07-09 | Outpatient (CLI) | payer MEDICARE ==
--- NOTE | 2024-07-09 15:05 | MM ---
Reason for Exam: Screening (asymptomatic). Last mammogram was performed 1 year(s) and 3 month(s) ago. Patient History: Menarche at age 12. First Full-Term at age 24. Left ovary removed at age 37. Hysterectomy at age 37. Postmenopausal. Hormonal Contraceptives, from age 24 until age 36. 2008, Cyst Aspiration on the Left side. 02/13/2018, Benign Stereotactic Core Biopsy on the left side. 01/31/2018, Benign Core Biopsy on the right side. 01/31/2018, MG discontinued stereo core LT on the left side. Risk Values: Serenity 5 year model risk: 1.8%. NCI Lifetime model risk: 3.5%. Prior Study Comparison: 10/27/2020 Bilateral Screening Mammogram, [facility]. 10/30/2021 Bilateral MG 3D screening mammo w/cad, [facility]. 03/26/2023 Bilateral MG 3D screening mammo w/cad, [facility]. Tissue Density: The breasts are heterogeneously dense, which may obscure small masses. Findings: Analyzed By CAD. There is no suspicious group of microcalcifications or new suspicious mass in either breast. Overall Assessment: Benign, BI-RAD 2 Management: Screening Mammogram of both breasts in 1 year. . Patient should continue monthly self-breast exams. A clinical breast exam by your physician is recommended on an annual basis. This exam should not preclude additional follow-up of suspicious palpable abnormalities. Note on Serenity scores and lifetime risk: 1. A Serenity score greater than 3% is considered moderate risk. If this is the case, consider specialist referral to assess eligibility for a risk reducing agent. 2. If overall lifetime risk for the development of breast cancer is 20% or higher, the patient may qualify for future screening with alternating mammogram and breast MRI. [facility], , 07/09/2024 3:02 PM. Electronically signed and approved by: Adalid Granados M.D. Radiologis
== END | disposition home or self-care (01) ==
LOC: RADMAMWWP 14:31
PROVIDERS: ATTEND Family Medicine
DX: Z12.31 Encounter for screening mammogram for malignant neoplasm of breast (principal); R92.333 Mammographic heterogeneous density, bilateral breasts; Z78.0 Asymptomatic menopausal state; Z92.0 Personal history of contraception
CPT/HCPCS: 77063; 77067